=== PATIENT | male | born 1955 | race Caucasian/White ===

== ENCOUNTER → 2017-01-02 | Outpatient (CLI) | payer MEDICARE | END | disposition home or self-care (01) | LOC: PCVCCLINIC 10:39 | PROVIDERS: ATTEND Internal Medicine Cardiovascular Disease | DX: I25.10 Atherosclerotic heart disease of native coronary artery without angina pectoris (principal); R93.1 Abnormal findings on diagnostic imaging of heart and coronary circulation; R00.2 Palpitations; R06.02 Shortness of breath; I10 Essential (primary) hypertension; R19.8 Other specified symptoms and signs involving the digestive system and abdomen; R09.89 Other specified symptoms and signs involving the circulatory and respiratory systems; F17.210 Nicotine dependence, cigarettes, uncomplicated; Z79.899 Other long term (current) drug therapy | CPT/HCPCS: 93005; G0463 ==

== ENCOUNTER → 2017-01-22 | Outpatient (CLI) | payer MEDICARE ==
--- NOTE | 2017-01-22 12:48 | PCVCIMAG ---
APPROVED REPORT Exam: Stress Echocardiogram Indication: Dyspnea, Fatigue, htn, Tobacco use,palp, elev cor ca score Patient Location: Echo lab Stress Nurse: Sabiha Stark RN Status: routine Ht: 5 ft 7 in HR: 120 bpm BP: 132/74 mmHg Rhythm: Sinus Tachycardia Medical History Medical History: anxiety,ocd,htn,elev cor ca+ score Cardiac Risk Factors: HTN, Tobacco History (Current/Recent) Pretest Chest Pain Characteristics: No chest pain Exercise History: Indeterminate Procedure The patient underwent an Exercise Stress Test using the Eduardo Protocol. Blood pressure, heart rate, and EKG were monitored. An Echocardiogram was performed by gas plant technician in four stages in quad fashion. At peak stress, four selected images were obtained and placed side by side with resting images for comparison. Stress Test Details Stress Test: Exercise stress testing was performed using a Eduardo protocol. HR Resting HR: 120 bpmMax Heart Rate (APMHR): 158 bpm Max HR Achieved: 146 bpmTarget HR (85% APMHR): 134 bpm % of APMHR: 92 Recovery HR: 109 bpm HR response to stress: Normal HR response to stress BP Resting BP: 132/74 mmHg Max BP: 166/84 mmHg Recovery BP: 144/78 mmHg ECG Resting ECG: Sinus Tachycardia Stress ECG: Sinus Rhythm Maximum ST Deviation: 1.6 mm Arrhythmia: Occasional PVCs Recovery ST Deviation: 0.8 mm Recovery Arrhythmia: occasional PVCs Clinical Reason for Termination: Maximal effort Stress Symptoms: none Exercise duration: 9 min 47 sec Highest Stage Achieved: 4 Exercise capacity: 12.4 METs Overall Exercise Capacity for Age: Good Scale: Active Angina Score: None Stress ECG Conclusion The patient exercised according to the Eduardo Protocol for 9:47 minutes, achieving a maximum work level of 12.4 METS. The resting heart rate of 120 bpm, fran to a maximal level of 150 bpm. This value represents 94% of the maximal, age-predicted heart rate. The resting blood pressure of 132/74 mmHg, fran to a maximum blood pressure of 166/84 mmHg. The exercise was stopped due to fatigue. Walker Treadmill Score is 1.0 which is Moderate risk. Pre-Stress Echo The resting Echocardiogram showed normal left ventricular contractility with an estimated Ejection Fraction of about 55-60%. Normal wall motion in all segments on baseline images. Post-Stress Echo The stress Echocardiogram showed normal left ventricular contractility with an estimated Ejection Fraction of about 65-70%. Normal augmentation of wall motion in all segments on post stress images. Clinical No clinical or ECG evidence for ischemia. Conclusion Clinical Response: Non-ischemic Exercise Capacity: Average Stress ECG Response: Non-ischemic Stress Echo Images: Non-ischemic No clinical, EKG or echocardiographic evidence for ischemia. No echocardiographic evidence for exercise induced ischemia. Normal stress echocardiogram with maximal exercise stress. Other Information Study Quality: Good <Conclusion> No clinical, EKG or echocardiographic evidence for ischemia. No echocardiographic evidence for exercise induced ischemia. Normal stress echocardiogram with maximal exercise stress.
== END | disposition home or self-care (01) ==
LOC: PCVCIMAG 10:53
PROVIDERS: ATTEND Internal Medicine Cardiovascular Disease
DX: I25.10 Atherosclerotic heart disease of native coronary artery without angina pectoris (principal); R06.00 Dyspnea, unspecified; R53.83 Other fatigue; I10 Essential (primary) hypertension; E83.59 Other disorders of calcium metabolism; Z72.0 Tobacco use; Z79.899 Other long term (current) drug therapy
CPT/HCPCS: 93325; 93351

== ENCOUNTER → 2018-03-06 | Outpatient (CLI) | payer MEDICARE | END | disposition home or self-care (01) | LOC: PCVCCLINIC 10:30 | PROVIDERS: ATTEND Internal Medicine Cardiovascular Disease | DX: I25.10 Atherosclerotic heart disease of native coronary artery without angina pectoris (principal); I10 Essential (primary) hypertension; E78.00 Pure hypercholesterolemia, unspecified; I65.23 Occlusion and stenosis of bilateral carotid arteries; R93.1 Abnormal findings on diagnostic imaging of heart and coronary circulation; F17.210 Nicotine dependence, cigarettes, uncomplicated; F32.9 Major depressive disorder, single episode, unspecified; E78.5 Hyperlipidemia, unspecified; Z72.89 Other problems related to lifestyle | CPT/HCPCS: 36415; 80061; 93005; G0463 ==

== ENCOUNTER → 2018-09-14 | Outpatient (CLI) | payer OTHER ==
--- NOTE | 2018-09-14 11:10 | PCVCIMAG ---
APPROVED REPORT Study performed: 09/14/2018 09:51:23 Exam: Stress Echocardiogram Indication: Elevated CA Score, Hypertension Patient Location: Echo lab Stress Nurse: Paige Shay RN Status: routine Ht: 5 ft 7 in HR: 100 bpm BP: 128/80 mmHg Rhythm: NSR Medical History Medical History: Smoking Procedure The patient underwent an Exercise Stress Test using the Eduardo Protocol. Blood pressure, heart rate, and EKG were monitored. An Echocardiogram was performed by parking technician in four stages in quad fashion. At peak stress, four selected images were obtained and placed side by side with resting images for comparison. Stress Test Details Stress Test: Exercise stress testing was performed using a Eduardo protocol. HR Resting HR: 100 bpmMax Heart Rate (APMHR): 156 bpm Max HR Achieved: 164 bpmTarget HR (85% APMHR): 132 bpm % of APMHR: 105 Recovery HR: 127 bpm HR response to stress: Normal HR response to stress BP Resting BP: 128/80 mmHg Max BP: 160/90 mmHg Recovery BP: 140/88 mmHg BP response to stress: Normal blood pressure response to stress. ECG Resting ECG: Sinus Rhythm Stress ECG: Sinus Rhythm Arrhythmia: occasional PVC's Recovery ECG: Sinus Rhythm Recovery Arrhythmia: occasional PVC's Clinical Reason for Termination: Maximal effort Exercise duration: 9 min 13 sec Highest Stage Achieved: Stage 4: 4.2 mph at 16% grade. Exercise capacity: 10.60 METs Overall Exercise Capacity for Age: Good Stress ECG Conclusion ECG: Non-ischemic Clinical: Non-ischemic Pre-Stress Echo The resting Echocardiogram showed normal left ventricular contractility with an estimated Ejection Fraction of about >55%. Normal wall motion in all segments on baseline images. Post-Stress Echo The stress Echocardiogram showed normal left ventricular contractility with an estimated Ejection Fraction of about 60-65%. Normal augmentation of wall motion in all segments on post stress images. Clinical No clinical or ECG evidence for ischemia. Conclusion Clinical Response: Non-ischemic Exercise Capacity: Good Stress ECG Response: Non-ischemic Stress Echo Images: Non-ischemic The left ventricle is normal in size and wall thickness in both the rest and stress images. No clinical, EKG or echocardiographic evidence for ischemia. Other Information Study Quality: Good <Conclusion> The left ventricle is normal in size and wall thickness in both the rest and stress images. No clinical, EKG or echocardiographic evidence for ischemia.
== END | disposition home or self-care (01) ==
LOC: PCVCIMAG 09:41
PROVIDERS: ATTEND Internal Medicine Cardiovascular Disease
DX: R93.1 Abnormal findings on diagnostic imaging of heart and coronary circulation (principal); I10 Essential (primary) hypertension
CPT/HCPCS: 93325; 93351